=== PATIENT | female | born 1990 | race Two or more races ===

== ENCOUNTER 2021-10-26 06:17 | Day surgery (SDC) | payer MEDICAID ==
[~2021-10-26] VITALS: Ht 165.1 cm; Wt 93.0 kg
[2021-10-26] MEDS ORDERED: ONDANSETRON HCL 4 MG/2 ML VIAL IV ONE (06:18)
[2021-10-26] MEDS ORDERED: PHENYLEPHRINE HCL 10 MG/ML VL IV ONE (06:18)
[2021-10-26] MEDS ORDERED: fentaNYL CITRATE 100 MCG/2 ML VL ONE (08:01)
[2021-10-26] MEDS ORDERED: MIDAZOLAM HCL 2MG/2ML 2ml VIAL (1mg/ml) ONE (08:01)
[2021-10-26] MEDS ORDERED: MEPERIDINE HCL (50 MG/ML) 1 ML VIAL ONE (08:01)
[2021-10-26] MEDS ORDERED: ceFAZolin 1GM VL ONE (08:02)
[2021-10-26] MEDS ORDERED: LIDOCAINE W/ EPINEPHRINE 2% INJ 20ML VIAL ONE (08:03)
[2021-10-26] MEDS ORDERED: BUPIVACAINE 0.25% INJ 50ML VIAL ONE (08:03)
[2021-10-26] MEDS ORDERED: CONJ ESTROGENS 0.625MG/GM VAG CRM 30GM PV ONE (08:03)
[2021-10-26] MEDS ORDERED: DexAMETHasone SOD PHOS 10MG/1ML VIAL INJ ONE (08:04)
[2021-10-26] MEDS ORDERED: PROPOFOL 10 MG/ML 20 ML IV ONE (08:04)
[2021-10-26] MEDS ORDERED: ROCURONIUM 10MG/ML 10ML VIAL IV ONE (08:05)
[2021-10-26] MEDS ORDERED: ceFAZolin 1GM/50ML 100 ML IV ONE (08:27)
[2021-10-26] MEDS ORDERED: ONDANSETRON HCL 4 MG/2 ML VIAL IV PRN ×2 (09:00→09:45)
[2021-10-26] MEDS ORDERED: MIDAZOLAM HCL 2MG/2ML 2ml VIAL (1mg/ml) IV PRN (09:45)
[2021-10-26] MEDS ORDERED: ePHEDrine SULFATE 50 MG/ML AMP IV PRN (09:45)
[2021-10-26] MEDS ORDERED: HYDROmorphone HCL 2 MG/ML VL/or syr IV PRN (09:45)
[2021-10-26] MEDS ORDERED: LABETALOL HCL 5 MG/ML 4ML SYRINGE IV PRN (09:45)
[2021-10-26] MEDS ORDERED: MORPHINE SULFATE 4 MG/ML SYR/VIAL IV PRN (09:45)
[2021-10-26] MEDS ORDERED: KETOROLAC TROMETH 30 MG/ML 1ML VIAL IV ONE (09:45)
[2021-10-26 11:15] VITALS: BP 100/45
== END 2021-10-26 11:30 | disposition home or self-care (01) ==
LOC: SUR 06:17
PROVIDERS: ATTEND Obstetrics & Gynecology
DX: N39.3 Stress incontinence (female) (male) (principal); N81.11 Cystocele, midline; N39.0 Urinary tract infection, site not specified; N94.89 Other specified conditions associated with female genital organs and menstrual cycle; E66.9 Obesity, unspecified; Z98.82 Breast implant status; Z88.1 Allergy status to other antibiotic agents; Z68.34 Body mass index [BMI] 34.0-34.9, adult; Z20.822 Contact with and (suspected) exposure to COVID-19
CPT/HCPCS: 57106; 57240; 57288; 86850; 86900; 86901; 88305; C1771; J0690; J1100; J2175; J2250; J2370; J2405; J2704; J3010; J3490; Q4140; U0003